=== PATIENT | male | born 1960 | race Caucasian/White ===

== ENCOUNTER 2017-04-23 18:38 | Emergency (ER) | payer SELFPAY ==
[2017-04-23 19:37] LABS: #Basophils 0.2 thou/uL (0.0-0.2); #Eosinphils 0.1 thou/uL (0.0-0.7); #Lymphocytes 3.2 thou/uL (1.20-3.40); #Monocytes 0.6 thou/uL (0.11-0.59); #Neutrophils 5.8 thou/uL (1.40-6.50); %Basophils 1.6 % (0.0-1.0); %Eosinophils 0.5 % (0.0-10.0); %Lymphocytes 32.6 % (21.0-51.0); %Monocytes 6.4 % (0.0-10.0); %Neutrophils 58.9 % (42.0-75.0); Mean Platelet Volume 6.1 fL (7.4-10.4); Platelet Count 240 thou/uL (130-400); RBC Distribution Width 11.1 % (11.5-14.5); Red Blood Cell (RBC) Count 5.47 mill/uL (4.70-6.10); White Blood Cell (WBC) Count 9.8 thou/uL (4.8-10.8)
[2017-04-23 19:52] LABS: ALT (SGPT) 29 U/L (8-55); AST (SGOT) 24 U/L (5-34); Alkaline Phosphatase 57 U/L (40-150); Anion Gap 13 mmol/L (10-20); BUN (Urea Nitrogen) 21 mg/dL (8.4-25.7); Bilirubin, Total 0.3 mg/dL (0.2-1.2); Calc. Creatinine Clearance 0 mL/min (70-130); Calcium 9.7 mg/dL (7.8-10.44); Carbon Dioxide 23 mmol/L (22-29); Chloride 106 mmol/L (98-107); Estimated GFR-MDRD 70; Globulin 2.3 g/dL (2.4-3.5); Glucose 139 mg/dL (70-105); Potassium 4.3 mmol/L (3.5-5.1); Protein, Total 6.3 g/dL (6.0-8.3); Sodium 138 mmol/L (136-145)
[2017-04-23 19:55] LABS: CKMB 1.6 ng/mL (0-6.6); Troponin I Less than 0.010 ng/mL (< 0.028)
[2017-04-23 20:17] LABS: Bilirubin Negative (Negative); Blood, Urine Negative (Negative); Clarity Clear (Clear); Glucose, Urine (Dipstick) Negative (Negative); Leukocyte Negative (Negative); Nitrite Negative (Negative); Protein, Urine (Dipstick) Negative (Neg-Trace); Specific Gravity, Urine 1.025 (1.005-1.030); Urobilinogen 0.2 mg/dL (0.2-1.0); pH, Urine 5.5 (5.0-9.0)
--- NOTE | 2017-04-23 21:36 | CT ---
CT OF THE BRAIN WITHOUT CONTRAST 04/23/17 INDICATION: Dizziness, diaphoresis and "frozen feeling." COMPARISON: None. FINDINGS: The septum pellucidum and third ventricle are midline. No definite acute infarct, hemorrhage or hyd rocephalus is present. Mastoid air cells are clear. There is some mild mucosal thickening within the ethmoid air cells. No air fluid levels noted. The skull is intact. IMPRESSION: No acute intracranial abnormality. POS: [facility]
--- NOTE | 2017-04-23 21:42 | RAD ---
PA AND LATERAL OF THE CHEST: 04/23/17 INDICATION: Syncope with dizziness, diaphoresis and "froze." IMPRESSION: No acute cardiopulmonary abnormality. COMMENTS: No comparisons are available. The lungs are clear. The cardiomediastinal silhouette is normal. No pl eural effusions or pneumothorax is evident. There is mild spondylosis of the thoracic spine. POS: [facility]
== END 2017-04-23 20:50 | disposition home or self-care (01) ==
LOC: NAV ERS 18:38
DX: R55 Syncope and collapse (principal); R73.9 Hyperglycemia, unspecified
CPT/HCPCS: 36416; 70450; 71020; 80053; 81003; 82553; 84443; 84484; 85025; 85379; 93005

== ENCOUNTER 2023-05-26 14:01 | Emergency (ER) | payer BC ==
[2023-05-26] MEDS ORDERED: Boostrix 0.5 ML (Tdap) VIAL (>/=7 yrs of age) ONE (14:39)
[2023-05-26] MEDS ORDERED: Amoxicillin/Potassium Clav 875 MG TAB ONE (15:00)
[2023-05-26] MEDS ORDERED: Bacitracin 1 PK ONE (15:00)
== END 2023-05-26 14:56 | disposition home or self-care (01) ==
LOC: NAV ERS 14:01
DX: S61.412A Laceration without foreign body of left hand, initial encounter (principal); X78.1XXA Intentional self-harm by knife, initial encounter
CPT/HCPCS: 12001; 90471; 90715

== ENCOUNTER 2023-06-06 11:31 | Emergency (ER) | payer BC | END 2023-06-06 11:59 | disposition home or self-care (01) | LOC: NAV ERS 11:31 | DX: S61.012D Laceration without foreign body of left thumb without damage to nail, subsequent encounter (principal); W26.0XXD Contact with knife, subsequent encounter; Y93.K9 Activity, other involving animal care ==

== ENCOUNTER 2024-01-16 00:02 | Emergency (ER) | payer BC ==
[2024-01-16] MEDS ORDERED: Tetracaine 0.5% PF 4 ML BOT ONE (00:09)
[2024-01-16] MEDS ORDERED: Fluorescein Opthalmic Strip ONE (00:09)
[2024-01-16] MEDS ORDERED: Sodium Chloride 0.9% 500 ML ONE (00:26)
[2024-01-16] MEDS ORDERED: Erythromycin Base 0.5% Ophth Oint 3.5 gm Tube ONE (00:50)
== END 2024-01-16 01:03 | disposition home or self-care (01) ==
LOC: NAV ERS 00:02
DX: S05.02XA Injury of conjunctiva and corneal abrasion without foreign body, left eye, initial encounter (principal); F17.210 Nicotine dependence, cigarettes, uncomplicated; W45.8XXA Other foreign body or object entering through skin, initial encounter
CPT/HCPCS: 99283; J7030